=== PATIENT | male | born 1995 | race Caucasian/White ===

== ENCOUNTER 2016-11-10 19:12 | Emergency (ER) | payer SELFPAY ==
[2016-11-10] MEDS ORDERED: HYDROcodone/ACETAMIN 5-325 MG* 1 TAB PO ONE (19:50)
--- NOTE | 2016-11-10 20:25 | RAD ---
INDICATION: Head injury. COMPARISON: There are no prior studies available for comparison. TECHNIQUE: Contiguous axial sections of the brain were obtained from the skull base to the vertex without contrast. FINDINGS: The ventricles, cisterns and sulci are within normal limits. No significant focal abnormality or mass effect is seen. There is no evidence for hemorrhage. No significant focal osseous abnormality is seen. The visualized portion of the paranasal sinuses and mastoid air cells appear clear. IMPRESSION: NO EVIDENCE FOR ACUTE INTRACRANIAL ABNORMALITY.
--- NOTE | 2016-11-10 20:30 | RAD ---
INDICATION: Trauma. COMPARISON: There are no prior studies available for comparison. TECHNIQUE: Contiguous axial sections were obtained from the skull base through the T2 vertebra. Images were reconstructed in the sagittal and coronal planes. FINDINGS: There is straightening of the cervical spine with loss of the normal cervical lordosis. No prevertebral soft tissue swelling or fracture is seen. At the C4-C5 level there is a mild broad-based disc bulge which appears to cause mild spinal canal narrowing. Neural foramen appear patent on both sides. The remaining intervertebral disc levels appear to be within normal limits. The lung apices appear clear. IMPRESSION: 1. STRAIGHTENING OF THE CERVICAL SPINE, NO EVIDENCE FOR FRACTURE OR SUBLUXATION. 2. MILD DEGENERATIVE DISC DISEASE AT THE C4-C5 LEVEL.
[2016-11-10] MEDS ORDERED: Cyclobenzaprine TAB* 10 MG PO ONE (21:11)
[2016-11-10 21:32] VITALS: BP 105/65
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
== END 2016-11-10 21:30 | disposition home or self-care (01) ==
LOC: UCEAST 19:12
DX: S16.1XXA Strain of muscle, fascia and tendon at neck level, initial encounter (principal); S09.90XA Unspecified injury of head, initial encounter; W10.9XXA Fall (on) (from) unspecified stairs and steps, initial encounter; Y93.9 Activity, unspecified; Y92.9 Unspecified place or not applicable; M50.30 Other cervical disc degeneration, unspecified cervical region; Z88.6 Allergy status to analgesic agent; Z88.5 Allergy status to narcotic agent; F17.210 Nicotine dependence, cigarettes, uncomplicated
CPT/HCPCS: 70450; 72125; 99213; A9270-GY; G0463

== ENCOUNTER 2016-12-30 12:52 | Emergency (ER) | payer MEDICAID ==
[2016-12-30 13:07] VITALS: BP 136/50
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
[2017-01-02 00:52] LABS: HS/VZ Source SKIN/FACE; Varicella Zoster Result Negative (Negative); Varicella Zoster Source SKIN/FACE
== END 2016-12-30 14:50 | disposition home or self-care (01) ==
LOC: UCEAST 12:52
DX: Z72.0 Tobacco use (principal); R21 Rash and other nonspecific skin eruption
CPT/HCPCS: 87529; 87798; 99212; G0463

== ENCOUNTER 2017-02-09 11:18 | Emergency (ER) | payer MEDICAID ==
[2017-02-09 12:12] VITALS: BP 112/71
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
== END 2017-02-09 14:10 | disposition home or self-care (01) ==
LOC: UCEAST 11:18
DX: K08.89 Other specified disorders of teeth and supporting structures (principal); K52.9 Noninfective gastroenteritis and colitis, unspecified; M54.30 Sciatica, unspecified side; S39.012A Strain of muscle, fascia and tendon of lower back, initial encounter; Z72.0 Tobacco use
CPT/HCPCS: 83630; 87045; 87046; 87077; 87328; 87329; 87493; 87899; 99212; G0463

== ENCOUNTER 2017-08-10 15:24 | Emergency (ER) | payer OTHER ==
[2017-08-10 15:37] VITALS: BP 112/70
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
== END 2017-08-10 16:15 | disposition home or self-care (01) ==
LOC: UCEAST 15:24
DX: S43.401A Unspecified sprain of right shoulder joint, initial encounter (principal); S46.911A Strain of unspecified muscle, fascia and tendon at shoulder and upper arm level, right arm, initial encounter; X50.1XXA Overexertion from prolonged static or awkward postures, initial encounter; X50.9XXA Other and unspecified overexertion or strenuous movements or postures, initial encounter; Y93.84 Activity, sleeping; Y92.003 Bedroom of unspecified non-institutional (private) residence as the place of occurrence of the external cause; Z72.0 Tobacco use
CPT/HCPCS: 99212; G0463

== ENCOUNTER 2017-08-19 09:45 | Emergency (ER) | payer OTHER ==
--- NOTE | 2017-08-19 11:03 | RAD ---
INDICATION: Left ankle pain after a fall the previous night COMPARISON: None. TECHNIQUE: 3 views of the left ankle were obtained. FINDINGS: At the distal left fibular metaphysis there is a linear bony outgrowth along the lateral margin of the bone extending in the cephalad direction. On the lateral view this bony out growth is seen extending anteriorly. Otherwise the well corticated bones exhibit normal alignment. Joint spaces appear maintained. No fracture is seen. IMPRESSION: BONY OUTGROWTH AT THE ANTEROLATERAL DISTAL LEFT FIBULA IS MOST CONSISTENT WITH A BENIGN EXOSTOSIS. NO DEFINITE FRACTURE OR DISLOCATION IS IDENTIFIED. If the patient's symptoms persist, follow-up imaging is recommended.
[2017-08-19 12:03] VITALS: BP 112/78
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
== END 2017-08-19 12:03 | disposition home or self-care (01) ==
LOC: ED 09:45
DX: M25.572 Pain in left ankle and joints of left foot (principal); F17.210 Nicotine dependence, cigarettes, uncomplicated
CPT/HCPCS: 99282

== ENCOUNTER 2017-08-27 11:59 | Emergency (ER) | payer OTHER ==
--- OUTSIDE RECORDS SUMMARY | 2017-08-27 12:17 | XMS REPORT ---
:1995 External Reference #:[id number] Author Organization [facility] Address [address] [address] Phone [phone] Care Team Providers Name Role Phone Harjeet Smart MD Care Team Information Electromechanical Assembly Technician Unavailable Harjeet Smart MD Primary Care Physician Unavailable Payers Type Date Identification Numbers Payment Provider Subscriber Commercial Policy Number: [id number] Ryan Courtney Group Name: [id number] [address] PayID: [id number] [place] [address] Problems Description No Information Social History Type Date Description Comments Lives With Roommate Occupation Currently Working ETOH Use Denies alcohol use Smoking Light tobacco smoker (10 or fewer cigarettes/day) Exercise Type/Frequency Exercises sporadically Allergies, Adverse Reactions, Alerts Date Description Reaction Status Severity Comments 02/25/2017 NKDA active Medications Medication Date Status Form Strength Qnty SIG Indications Ordering Provider Amoxicillin Active Capsules 250mg pre-dent Unknown 00 al work Ibuprofen Active Tablets 800mg Unknown 00 Escitalopram Active Tablets 10mg Unknown Oxalate 00 Gabapentin Active Capsules 300mg Carin Coyle NP Mobic Hx Tablets 15mg once Unknown 00 - daily 08/24/19 with 18 food Vital Signs Date Vital Result Comment 08/25/2017 Height 72 inches 6'0" Weight 160.00 lb BP Systolic 121 mmHg BP Diastolic 72 mmHg Respiratory Rate 15 /min Pain Level 8 BMI (Body Mass Index) 21.7 kg/m2 03/12/2017 Height 72 inches 6'0" Weight 142.00 lb Heart Rate 72 /min Respiratory Rate 16 /min Pain Level 9 BMI (Body Mass Index) 19.3 kg/m2 02/25/2017 Height 72 inches 6'0" Weight 134.00 lb Heart Rate 68 /min BP Systolic 104 mmHg BP Diastolic 64 mmHg Respiratory Rate 16 /min Body Temperature 97.6 F BMI (Body Mass Index) 18.2 kg/m2 Results Description No Information Procedures Description No Information Encounters Type Date Location Provider CPT E/M Dx Office Visit 03/12/2017 [facility] Felipe Rodriguez, [address] [id number] 8:00a [facility] Office Visit 02/25/2017 [facility] Tal Jenkins, [address] R10.813 10:30a [facility] Plan of Care Future Appointment(s):09/15/2017 2:45 pm - Felipe Rodriguez MD at [facility]/25/2017 - Felipe Rodriguez, [id number] Recurrent dislocation, right shoulderNew Xrays:MRI Shoulder Right W/ OArthrography - Shoulder RTFollow up:Follow up: 3 [id number] Pain in left ankle and joints of left footNew Xrays:Ankle Left 3+VWS
== END 2017-08-27 13:16 | disposition left against medical advice (07) ==
LOC: UCEAST 11:59
DX: R11.10 Vomiting, unspecified (principal); M79.1 Myalgia; J02.9 Acute pharyngitis, unspecified; Z53.21 Procedure and treatment not carried out due to patient leaving prior to being seen by health care provider

== ENCOUNTER 2019-08-24 20:05 | Emergency (ER) | payer OTHER ==
[2019-08-24 21:42] VITALS: BP 145/78
== END 2019-08-24 23:14 | disposition left against medical advice (07) ==
LOC: ED 20:05
DX: Z53.21 Procedure and treatment not carried out due to patient leaving prior to being seen by health care provider (principal); R11.10 Vomiting, unspecified
CPT/HCPCS: 99281

== ENCOUNTER 2019-10-28 12:40 | Emergency (ER) | payer OTHER ==
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
[2019-10-28 13:45] LABS: ABS Basophils 0.1 10^3/ul (0-0.2); ABS Eosinophils 0.4 10^3/ul (0-0.6); ABS Lymphocytes 2.1 10^3/ul (1.0-4.8); ABS Monocytes 0.3 10^3/ul (0-0.8); ABS Neutrophils 6.2 10^3/ul (1.5-7.7); Hematocrit 38 % (42-52); Hemoglobin 12.9 g/dL (14.0-18.0); Mean Corpuscular HGB Conc 34 g/dL (31-36); Mean Corpuscular Hemoglobin 31 pg (27-31); Mean Corpuscular Volume 89 fL (80-94); Nucleated Red Blood Cells % 0.1; Platelet Count 303 10^3/uL (150-450); Red Blood Count 4.23 10^6 /uL (4.18-5.48); Red Cell Distribution Width 13 % (10-15); White Blood Count 9.1 10^3/uL (3.5-10.8)
[2019-10-28 14:03] LABS: Albumin 3.6 g/dL (3.2-5.2); Albumin/Globulin Ratio 1.2 (1-3); Calcium 8.9 mg/dL (8.6-10.3); EGFR African American 79.3 (>60); EGFR Non-African American 65.5 (>60); Potassium 4.4 mmol/L (3.5-5.0); Total Bilirubin 0.3 mg/dL (0.2-1.0); Total Protein 6.6 g/dL (6.4-8.9)
[2019-10-28] MEDS ORDERED: Iohexol 300* (CONTRAST) 10 ML SDV IV ONE (14:22)
[2019-10-28] MEDS ORDERED: Clindamycin 600 MG/D5W BAG(*) 600 MG/50 ML BAG IV ONE (15:24)
[2019-10-28 16:02] VITALS: BP 118/49
== END 2019-10-28 16:01 | disposition home or self-care (01) ==
LOC: ED 12:40
DX: K04.7 Periapical abscess without sinus (principal); L03.211 Cellulitis of face; F17.210 Nicotine dependence, cigarettes, uncomplicated; Z88.8 Allergy status to other drugs, medicaments and biological substances
CPT/HCPCS: 36415; 70487; 80053; 85025; 96365; 99282; Q9967

== ENCOUNTER 2020-02-27 12:25 | Observation (INO) ==
[2020-02-27] MEDS ORDERED: Midazolam 5 mg/ml concentrated 5 mg/ml 1 ml VIAL ONE ×2 (12:30→12:41)
[2020-02-27] MEDS ORDERED: Midazolam 5 mg/5 ml VIAL 1 mg/ml 5 ml VIAL (5 mg) IV SLOW PU ONE (12:30)
[2020-02-27] MEDS ORDERED: NS 0.9% 1000 ml BAG 1,000 ML IV ONE ×3 (13:30→18:12)
[2020-02-27] MEDS ORDERED: Midazolam 2 mg/2 ml VIAL 1 mg/ml 2 ml VIAL (2 mg) IM ONE ×2 (14:06→14:35)
[2020-02-27 15:14] LABS: ABS Basophils 0.2 10^3/ul (0-0.2); ABS Eosinophils 0.1 10^3/ul (0-0.6); ABS Monocytes 1.5 10^3/ul (0-0.8); ABS Neutrophils 19.5 10^3/ul (1.5-7.7); Eosinophil % 0.6 %; Hematocrit 36 % (42-52); Hemoglobin 11.9 g/dL (14.0-18.0); Lymphocyte % 12.2 %; Mean Corpuscular HGB Conc 33 g/dL (31-36); Mean Corpuscular Hemoglobin 29 pg (27-31); Mean Corpuscular Volume 88 fL (80-94); Mean Platelet Volume 8.1 fL (7.4-10.4); Platelet Count 335 10^3/uL (150-450); Red Blood Count 4.07 10^6 /uL (4.18-5.48); Red Cell Distribution Width 14 % (10-15); White Blood Count 24.3 10^3/uL (3.5-10.8)
[2020-02-27] MEDS ORDERED: Lorazepam PYXIS KEY PRN ×2 (16:02→18:08)
[2020-02-27] MEDS ORDERED: LORazepam 2 mg VIAL 1 ml IV PUSH ONE (16:02)
[2020-02-27 16:05] LABS: ALT 42 U/L (7-52); Albumin 3.3 g/dL (3.2-5.2); Alkaline Phosphatase 132 U/L (34-104); Blood Urea Nitrogen 17 mg/dL (6-24); CO2 Carbon Dioxide 27 mmol/L (22-32); Calcium 8.5 mg/dL (8.6-10.3); Chloride 104 mmol/L (101-111); EGFR Non-African American 85.1 (>60); Globulin 3.2 g/dL (2-4); Glucose 84 mg/dL (70-100); Sodium 138 mmol/L (135-145); Total Protein 6.5 g/dL (6.4-8.9)
[2020-02-27] MEDS ORDERED: Lorazepam PYXIS KEY ONE (16:09)
[2020-02-27 16:33] LABS: Creatine Kinase 519 U/L (10-223)
[2020-02-27 16:56] LABS: Anion Gap 7 mmol/L (2-11)
[2020-02-27 17:52] LABS: Acetaminophen < 15 mcg/mL; Salicylate < 2.50 mg/dL (<30)
[2020-02-27] MEDS ORDERED: LORazepam 2 mg VIAL 1 ml IV PUSH PRN (18:08)
[2020-02-27] MEDS: NS 0.9% 1000 ml BAG 1,000 ML IV SCH (22:18)
[2020-02-28] MEDS: NS 0.9% 1000 ml BAG 1,000 ML IV SCH (07:00)
[2020-02-28 12:45] VITALS: BP 101/68
== END 2020-02-28 14:00 | disposition home or self-care (01) ==
LOC: MED 12:25 → ED 12:25 → MED 20:23
PROVIDERS: ADMIT Internal Medicine; ATTEND Internal Medicine

== ENCOUNTER 2020-03-11 14:57 | Inpatient (IN) ==
[2020-03-11 15:13] LABS: ABS Basophils 0.1 10^3/ul (0-0.2); ABS Eosinophils 0.2 10^3/ul (0-0.6); ABS Lymphocytes 3.5 10^3/ul (1.0-4.8); ABS Monocytes 0.8 10^3/ul (0-0.8); ABS Neutrophils 7.9 10^3/ul (1.5-7.7); Eosinophil % 1.3 %; Hematocrit 32 % (42-52); Hemoglobin 10.4 g/dL (14.0-18.0); Lymphocyte % 28.2 %; Mean Corpuscular HGB Conc 32 g/dL (31-36); Mean Corpuscular Hemoglobin 30 pg (27-31); Mean Corpuscular Volume 92 fL (80-94); Mean Platelet Volume 7.5 fL (7.4-10.4); Platelet Count 414 10^3/uL (150-450); Red Cell Distribution Width 14 % (10-15); White Blood Count 12.4 10^3/uL (3.5-10.8)
[2020-03-11 15:33] LABS: ALT 220 U/L (7-52); AST 64 U/L (13-39); Albumin 3.1 g/dL (3.2-5.2); Alkaline Phosphatase 195 U/L (34-104); BUN/Creatinine Ratio 11.5 (8-20); Blood Urea Nitrogen 12 mg/dL (6-24); Calcium 7.7 mg/dL (8.6-10.3); Chloride 104 mmol/L (101-111); Creatine Kinase 345 U/L (10-223); EGFR African American 105.3 (>60); Globulin 3.1 g/dL (2-4); Glucose 173 mg/dL (70-100); Potassium 3.4 mmol/L (3.5-5.0); Sodium 136 mmol/L (135-145); Total Protein 6.2 g/dL (6.4-8.9)
[2020-03-11 15:40] LABS: Anion Gap 20 mmol/L (2-11); CO2 Carbon Dioxide 12 mmol/L (22-32)
[2020-03-11] MEDS ORDERED: NS 0.9% 1000 ml BAG 1,000 ML IV ONE (15:40)
[2020-03-11 15:54] LABS: Alcohol, S < 10 mg/dL (<10)
[2020-03-11] MEDS ORDERED: Piperacillin/Tazobac ADVAN 3.375 GM in NS 0.9% 100 ml BAG 100 ML IVPB ONE ×2 (16:20→17:40)
[2020-03-11] MEDS ORDERED: Piperacillin/Tazobac 3.375 GM BAG ONE (17:10)
[2020-03-11] MEDS ORDERED: LORazepam 2 mg VIAL 1 ml IV PUSH PRN (17:56)
[2020-03-11] MEDS ORDERED: Lorazepam PYXIS KEY PRN (17:56)
[2020-03-11] MEDS ORDERED: Zosyn per Pharmacy NOTE FOLLOW UP SCH (18:00)
[2020-03-11 18:44] LABS: BUN/Creatinine Ratio 12.1 (8-20); Calcium 8.1 mg/dL (8.6-10.3); EGFR African American 122.8 (>60); EGFR Non-African American 101.5 (>60); Potassium 4.9 mmol/L (3.5-5.0)
[2020-03-11 18:49] LABS: Urine Appearance Cloudy; Urine Bilirubin Negative (Negative); Urine Blood Negative (Negative); Urine Color Yellow; Urine Glucose Negative (Negative); Urine Ketones Negative (Negative); Urine Nitrite Negative (Negative); Urine Protein Negative (Negative); Urine Specific Gravity 1.012 (1.010-1.030); Urine Urobilinogen Negative (Negative)
[2020-03-11 18:51] LABS: Urine Benzodiazepine Screen Presumptive Positive (None Detect); Urine Cannabinoids Screen None Detected (None Detect); Urine Opiates Screen None Detected (None Detect)
[2020-03-11] MEDS ORDERED: Vancomycin 1,000 MG in NS 0.9% 250 ml 250 ML IVPB ONE (18:53)
[2020-03-11] MEDS ORDERED: Vancomycin per Pharmacy 1 EA NOTE FOLLOW UP SCH (19:00)
[2020-03-11 20:09] VITALS: BP 140/72
[2020-03-11] MEDS ORDERED: ZOSYN 3.375 GM Q8H per EXTENDED INFUSION IV SCH (21:00)
[2020-03-11] MEDS ORDERED: Mupirocin 2% OINT TUBE TOPICAL SCH (21:00)
== END 2020-03-11 20:45 | disposition left against medical advice (07) | DRG 812 ==
LOC: ED 14:57 → ICU 17:57
PROVIDERS: ADMIT Internal Medicine; ATTEND Pediatrics

== ENCOUNTER 2021-04-12 20:21 | Observation (INO) ==
[2021-04-12] MEDS ORDERED: Vancomycin 1,000 MG in NS 0.9% 250 ml 250 ML IVPB ONE (20:50)
[2021-04-12] MEDS: Lactated Ringers 1000 ml BAG 1,000 ML IV SCH ×2 (21:00→21:45)
[2021-04-12] MEDS ORDERED: LORazepam 2 mg VIAL 1 ml IV ONE ×2 (21:03→23:04)
[2021-04-12] MEDS ORDERED: Lorazepam PYXIS KEY PRN ×2 (21:03→23:04)
[2021-04-12] MEDS: Cefepime 2 GM in Dextrose 2 GM/50 ML BAG IV SCH (21:15)
[2021-04-12 21:29] LABS: Hematocrit 40 % (42-52); Hemoglobin 13.6 g/dL (14.0-18.0); Mean Corpuscular HGB Conc 34 g/dL (31-36); Mean Corpuscular Hemoglobin 30 pg (27-31); Mean Corpuscular Volume 89 fL (80-94); Mean Platelet Volume 8.4 fL (7.4-10.4); Platelet Count 377 10^3/uL (150-450); Red Blood Count 4.55 10^6 /uL (4.18-5.48); Red Cell Distribution Width 14 % (10-15); White Blood Count 22.7 10^3/uL (3.5-10.8)
[2021-04-12 22:10] LABS: ABS Basophils 0.1 10^3/ul (0-0.2); ABS Eosinophils 0.1 10^3/ul (0-0.6); ABS Lymphocytes 1.6 10^3/ul (1.0-4.8); ABS Monocytes 1.7 10^3/ul (0-0.8); ABS Neutrophils 19.3 10^3/ul (1.5-7.7); Eosinophil % 0.4 %; Lymphocyte % 6.9 %
[2021-04-12 22:36] LABS: ALT 101 U/L (7-52); AST 85 U/L (13-39); Albumin 4.4 g/dL (3.2-5.2); Albumin/Globulin Ratio 1.2 (1-3); Alkaline Phosphatase 211 U/L (35-149); Anion Gap 11 mmol/L (2-11); Blood Urea Nitrogen 29 mg/dL (6-24); C Reactive Protein < 1.00 mg/L (<8.01); CO2 Carbon Dioxide 24 mmol/L (22-32); Calcium 9.2 mg/dL (8.6-10.3); Chloride 103 mmol/L (101-111); EGFR African American 63.1 (>60); EGFR Non-African American 52.1 (>60); Globulin 3.6 g/dL (2-4); Glucose 64 mg/dL (70-100); Potassium 3.9 mmol/L (3.5-5.0); Sodium 138 mmol/L (135-145)
[2021-04-12] MEDS ORDERED: Dextrose 50% Syringe 50 ml 25 GM/50 ML SYRINGE IV PUSH ONE (22:57)
[2021-04-12] MEDS ORDERED: Lactated Ringers 1000 ml BAG 1,000 ML IV ONE (23:04)
[2021-04-12 23:54] LABS: Urine Benzodiazepine Screen Presumptive Positive (None Detect); Urine Cannabinoids Screen None Detected (None Detect); Urine Opiates Screen None Detected (None Detect)
[2021-04-13 01:49] LABS: Creatine Kinase 448 U/L (10-223)
[2021-04-13] MEDS ORDERED: NS 0.9% 1000 ml BAG 2,040 ML IV ONE (07:45)
[2021-04-13] MEDS: Cefepime 2 GM in Dextrose 2 GM/50 ML BAG IV SCH (08:03)
[2021-04-13 08:53] LABS: Rapid COVID-19 Molecular Undetected (Undetected)
[2021-04-13 08:54] LABS: ABS Basophils 0.1 10^3/ul (0-0.2); ABS Eosinophils 0.4 10^3/ul (0-0.6); ABS Lymphocytes 2.1 10^3/ul (1.0-4.8); ABS Neutrophils 10.9 10^3/ul (1.5-7.7); Eosinophil % 2.6 %; Hematocrit 34 % (42-52); Hemoglobin 11.4 g/dL (14.0-18.0); Lymphocyte % 14.5 %; Mean Corpuscular HGB Conc 34 g/dL (31-36); Mean Corpuscular Hemoglobin 30 pg (27-31); Mean Corpuscular Volume 88 fL (80-94); Mean Platelet Volume 8.2 fL (7.4-10.4); Platelet Count 285 10^3/uL (150-450); Red Blood Count 3.83 10^6 /uL (4.18-5.48); Red Cell Distribution Width 14 % (10-15); White Blood Count 14.4 10^3/uL (3.5-10.8)
[2021-04-13 08:59] LABS: Albumin 3.3 g/dL (3.2-5.2); Albumin/Globulin Ratio 1.1 (1-3); Calcium 8.1 mg/dL (8.6-10.3); EGFR Non-African American 77.6 (>60); Globulin 2.9 g/dL (2-4); Potassium 3.5 mmol/L (3.5-5.0); Total Bilirubin 0.7 mg/dL (0.2-1.0); Total Protein 6.2 g/dL (6.4-8.9)
[2021-04-13] MEDS ORDERED: Iohexol 300 (CONTRAST) 10 ML SDV IV ONE (10:14)
[2021-04-13] MEDS ORDERED: Al Hydrox/Mg Hydrox/Simet LIQ 30 ML UDC PO PRN (10:55)
[2021-04-13] MEDS ORDERED: Buprenorp/Nalox 8-2 MG FILM SL FILM SCH ×2 (11:00→21:00)
[2021-04-13] MEDS ORDERED: NS 0.9% 1000 ml BAG 1,000 ML IV SCH (11:00)
[2021-04-13] MEDS ORDERED: Vancomycin 1,000 MG in NS 0.9% 250 ml 250 ML IVPB ONE (11:17)
[2021-04-13] MEDS ORDERED: Vancomycin per Pharmacy 1 EA NOTE FOLLOW UP SCH (12:00)
[2021-04-13 19:28] VITALS: BP 141/58
[2021-04-13] MEDS ORDERED: Vancomycin 1000 MG in NS 0.9% 250 ML IVPB SCH (20:00)
[2021-04-13] MEDS ORDERED: Mometasone/Formoter 100/5 MDI INH SCH (21:00)
[2021-04-14] MEDS ORDERED: Vancomycin Trough Check NOTE FOLLOW UP ONE (11:30)
== END 2021-04-13 23:22 | disposition left against medical advice (07) ==
LOC: ED 20:21 → MEDTELE 20:21
PROVIDERS: ADMIT Internal Medicine; ATTEND Internal Medicine